=== PATIENT | female | born 1960 | race Caucasian/White ===

== ENCOUNTER 2019-09-20 12:12 | Emergency (ER) | payer MEDICAID ==
[~2019-09-20] VITALS: Ht 170.2 cm; Wt 70.3 kg
[2019-09-20 12:12] VITALS: BP_SYST 116
--- NOTE | 2019-09-20 13:00 | NUR ---
Patient to ER bed 4 to gown for evaluation. Side rails up. Report given to Toya NAVARRETE.
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
[2019-09-20] MEDS ORDERED: ACETAMINOPHEN 500 MG TABLET PO ONE (13:30)
[2019-09-20] MEDS ORDERED: LIDOCAINE/EPI 2% 1:100000 20 ML VIAL INJ ONE (13:30)
--- NOTE | 2019-09-20 13:32 | NUR ---
ER IVA Zapata at bedside examining patient.
[2019-09-20] MEDS ORDERED: BACITRACIN 1 GM OINT TP ONE (13:45)
--- NOTE | 2019-09-20 13:45 | NUR ---
Patient refused Tylenol PO, stated, "It doesn't help me. Only Vicodin helps with the pain." S[employer]PER aware.
--- NOTE | 2019-09-20 14:01 | NUR ---
Patient taken to CT via gurney, in stable condition.
--- NOTE | 2019-09-20 14:15 | NUR ---
Patient back from CT, in stable condition.
--- NOTE | 2019-09-20 14:22 | NUR ---
Patient left AMA through ambulance bay without talking to any staff.
== END 2019-09-20 14:36 | disposition left against medical advice (07) ==
LOC: SED 12:12
DX: S01.01XA Laceration without foreign body of scalp, initial encounter (principal); M54.2 Cervicalgia; I10 Essential (primary) hypertension; F12.90 Cannabis use, unspecified, uncomplicated; Z88.1 Allergy status to other antibiotic agents; Y04.0XXA Assault by unarmed brawl or fight, initial encounter; Y93.89 Activity, other specified; Y92.89 Other specified places as the place of occurrence of the external cause; Y99.8 Other external cause status
CPT/HCPCS: 70450-TC; 70486-TC; 72125-TC; 99284

== ENCOUNTER 2019-09-20 14:33 | Emergency (ER) | payer MEDICAID ==
--- NOTE | 2019-09-20 14:40 | NUR ---
Pt called for triage, no answer
[2019-09-20] MEDS ORDERED: LIDOCAINE/EPI 2% 1:100000 20 ML VIAL INJ ONE (14:45)
[2019-09-20] MEDS ORDERED: BACITRACIN 1 GM OINT TP ONE (14:45)
--- NOTE | 2019-09-20 14:45 | NUR ---
Pt called for triage, no answer
--- NOTE | 2019-09-20 14:50 | NUR ---
Pt called for triage, no answer
== END 2019-09-20 14:50 | disposition left against medical advice (07) ==
LOC: SED 14:33
DX: Z04.3 Encounter for examination and observation following other accident (principal); Y04.0XXA Assault by unarmed brawl or fight, initial encounter; Y93.89 Activity, other specified; Y92.89 Other specified places as the place of occurrence of the external cause; Y99.8 Other external cause status; Z53.21 Procedure and treatment not carried out due to patient leaving prior to being seen by health care provider